=== PATIENT | male | born 1985 | race Two or more races ===

== ENCOUNTER 2022-07-23 21:11 | Emergency (ER) | payer MEDICAID, SELFPAY ==
--- NOTE | 2022-07-23 | ECG_ITS ---
Test Reason : CHEST PAIN Blood Pressure : / mmHG Vent. Rate : 066 BPM Atrial Rate : 066 BPM P-R Int : 146 ms QRS Dur : 100 ms QT Int : 424 ms P-R-T Axes : 073 065 036 degrees QTc Int : 444 ms Normal sinus rhythm Incomplete right bundle branch block Borderline ECG When compared with ECG of 13-NOV-2019 13:07, No significant change was found Referred By: Generic ED Physician Electronically Signed By:BOZENA BLUM
[2022-07-23 21:29] VITALS: BP 149/93; PULSE 64; RESP 18; TEMP 36.4; O2SAT 98; BMI 31.6
== END 2022-07-24 01:03 | disposition left against medical advice (07) ==
PROVIDERS: Emergency Provider Emergency Medicine
DX: R06.02 Shortness of breath (principal); R07.89 Other chest pain
CPT/HCPCS: 93005; 99281; 99283

== ENCOUNTER 2023-02-12 15:20 | Outpatient (REF) | payer MEDICAID, SELFPAY ==
--- NOTE | ~2023-02-12 | US_ITS ---
EXAMINATION: US PELVIS, LIMITED/FOLLOW UP CLINICAL INFORMATION: Evaluate for left-sided inguinal hernia. COMPARISON: None available. TECHNIQUE: Targeted real-time sonographic evaluation of the left inguinal region for evaluation of hernia. US/US pelvic limited FINDINGS/IMPRESSION: There is a fat-containing left-sided inguinal hernia with a neck measuring 0.6 cm. There are a few slightly prominent but benign-appearing left inguinal lymph nodes, likely reactive, for which no imaging follow-up is recommended.
== END 2023-02-12 15:21 | disposition home or self-care (01) ==
LOC: HO.US 15:20
PROVIDERS: PCP Family Medicine; Visit Provider Registered Nurse
DX: K40.91 Unilateral inguinal hernia, without obstruction or gangrene, recurrent (principal)
CPT/HCPCS: 76857

== ENCOUNTER → 2023-02-25 09:09 | Outpatient (BNVA) | payer MEDICAID, SELFPAY | PROVIDERS: PCP Family Medicine; Referring Provider Family Medicine; Visit Provider Surgery | DX: K40.90 Unilateral inguinal hernia, without obstruction or gangrene, not specified as recurrent (principal) | CPT/HCPCS: 99202 ==

== ENCOUNTER 2023-04-02 09:04 | Day surgery (SDC) | payer MEDICAID, SELFPAY ==
[2023-03-31 10:52] VITALS: BMI 30.9
--- NOTE | 2023-04-01 10:01 | MHC.SHP ---
Pre-Procedural Eval Section A Date of Service: 04/01/23 The patient is an INPATIENT: No Changes since office visit: No Cold of Flu in the past 2 weeks, No New Medical Problems, No Changes in Medication and No Patient answered all questions The History & Physical has been completed within 30 days and I have reviewed it.: Yes Section B Chief Complaint: Unilateral inguinal hernia, without obstruction Allergies: Allergies Allergy/AdvReac Type Severity Reaction Status Date / Time No Known Allergies Allergy Unverified 02/25/23 09:15 [No Known Allergies*] Plan I have reviewed the history and physical and performed a pertinent physical examination on my patient. No changes have occurred unless specified. Time Spent With Patient Time: Total time managing care of this patient today ____ minutes.
--- NOTE | 2023-04-01 10:05 | P.CONAN_ITS ---
Documented by User: Elsi Santiago NP 04/01/23 10:06 HPI - Anesthesia Eval Consult details Narrative: 38yo M for Left Hernia Repair Inguinal with mesh PMFSH Active Problems Active Problems: All Active Problems (Updated 02/25/23 @ 09:30 by David Dennis MD) Inguinal hernia (Acute) Past Medical History Medical History (Updated 02/25/23 @ 09:18 by OSEAS Daniel) History of calculus of gallbladder (~2014) Seasonal allergies Sinusitis Family History Family History (Updated 02/25/23 @ 09:19 by OSEAS Daniel) Mother No problems noted. Social History Social History (Updated 02/25/23 @ 09:20 by OSEAS Daniel) Alcohol intake: current Alcohol intake frequency: holidays/special occasions only Patient Tobacco Use Status: Current everyday Tobacco user Cigarettes Per Day: 10 Advance Directives: No Advance Directives Information Provided: Yes Meds Allergies Allergy/AdvReac Type Severity Reaction Status Date / Time No Known Allergies Allergy Unverified 02/25/23 09:15 [No Known Allergies*] Active Medications: Current Medications Cefazolin Sodium/Dextrose (Ancef) 2 gm in 50 mls @ 100 mls/hr IV PREOP ONE Stop: 04/01/23 10:29 Home Medications Medication Instructions Recorded Confirmed Last Taken Type ibuprofen 800 mg tablet 800 mg PO Q6H 02/25/23 Unknown History Exam Exam Date and Time: April 01, 2023 1005 Height,Weight and Vital Signs: Height 6 ft 4 in Weight 115.212 kg Narrative Narrative: EKG 06/2022 Vent. Rate : 066 BPM ? ? Atrial Rate : 066 BPM ?? P-R Int : 146 ms? QRS Dur : 100 ms ? ? QT Int : 424 ms ? ? ? P-R-T Axes : 073 065 036 degrees ?? QTc Int : 444 ms ? Normal sinus rhythm Incomplete right bundle branch block Borderline ECG When compared with ECG of 13-NOV-2019 13:07, No significant change was found Assessment and Plan Assessment Anesthesia Assessment: Chart Reviewed Documented by User: Ajit Fink MD 04/02/23 10:29 [facility] Past Medical History Medical History (Updated 02/25/23 @ 09:18 by OSEAS Daniel) History of calculus of gallbladder (~2014) Seasonal allergies Sinusitis Narrative: BERNARD. W/U ongoing. Family History Family History (Updated 02/25/23 @ 09:19 by OSEAS Daniel) Mother No problems noted. Family history of problems with anesthesia: No Surgical History History of Problems with Anesthesia: No Social History Social History (Updated 02/25/23 @ 09:20 by OSEAS Daniel) Alcohol intake: current Alcohol intake frequency: holidays/special occasions only Patient Tobacco Use Status: Current everyday Tobacco user Cigarettes Per Day: 10 Advance Directives: No Advance Directives Information Provided: Yes Meds Allergies Allergy/AdvReac Type Severity Reaction Status Date / Time No Known Allergies Allergy Unverified 02/25/23 09:15 [No Known Allergies*] Home Medications Medication Instructions Recorded Confirmed Last Taken Type ibuprofen 800 mg tablet 800 mg PO Q6H 02/25/23 Unknown History Exam Airway Mallampati Class: II TM Dist: >3cm Neck ROM: Full Heart: ok Lungs: ok Assessment and Plan Assessment Anesthesia Assessment: Anesthesia Plan Discussed Final Anesthetic Review Family History of Problems with Anesthesia: No History of Problems with Anesthesia: No NPO: Yes ASA Class: III Final Preanesthetic Review: No Changes in Pt Med Stat, Meds/Allgs Chart Reviewed, Consent Obtained/Reviewed and Anes Risks/Benef Reviewed Patient Risk: Intermediate Procedure Risk: Low Anesthetic Plan Anesthetic Plan: MAC: and Agree w/ Assess. and Plan Disposition: Standard PACU
[2023-04-02 10:32] VITALS: BMI 31.0
[2023-04-02] MEDS: Lactated Ringers 1,000 ML 100 ML IVCONT (10:43)
[2023-04-02 11:48] VITALS: BP 122/76; PULSE 62; RESP 16; TEMP 36.4; O2SAT 97
--- NOTE | 2023-04-02 11:50 | P.OP_ITS ---
Operative Note Operative Note Date of Service: 04/02/23 Narrative: Preoperative diagnosis: [] Symptomatic left inguinal hernia Postop diagnosis: [] Same Procedure [] open repair left inguinal hernia with Bard mesh Surgeon: [] Sonny Child Development Associate Teacher: [] yen Corey Type of Anesthesia: [] MAC converted to LMA Indication for surgery: [] Very large direct left inguinal hernia. No indirect hernia demonstrated. Findings: [] Patient brought to the operating room, placed on the operative table supine position, and after adequate level of MAC converted to LMA anesthesia was induced, along with local infiltration ,the patient's left groin was prepped and draped in usual sterile fashion. Using a small left para- inguinal incision, this carried down through skin, subcutaneous tissue, and Jona's fascia. External oblique fibers were opened their direction with care to isolate and preserve the ilioinguinal nerve throughout the procedure. Spermatic cord was identified and retracted from the field. Exploration of the cord demonstrated no indirect hernia. A very large direct inguinal hernia was reduced. A Bard plug was placed in this defect and sutured in inferiorly to the inguinal ligament and superiorly to the transversalis fascia using interrupted 0 Ethibond suture. A completion the procedure, the mesh was in good position and covered the entire inguinal floor. Wound was irrigated, secured for hemostasis, and closed in the following manner ; external oblique fascia was closed using running 2-0 Vicryl suture. Jona's fascia was reapproximated using up to 3-0 Vicryl sutures. Interrupted inverted subdermal 3-0 Vicryl sutures followed by running subcuticular 4-0 Vicryl suture placed. Steri-Strips and sterile dressings were applied. Wound was infiltrated 0.5% Marcaine and 1% lidocaine at completion the procedure. Sponge, needle, and instrument counts reported correct. Patient tolerated the procedure well and emerged anesthesia stable condition. EBL minimum
[2023-04-02 11:53] VITALS: BP 122/67; PULSE 60; RESP 16; O2SAT 97
[2023-04-02 11:58] VITALS: BP 115/73; PULSE 61; RESP 16; O2SAT 97
[2023-04-02 12:03] VITALS: BP 112/61; PULSE 61; RESP 16; O2SAT 97
[2023-04-02] MEDS: oxyCODONE HCl Immed Release 5 MG TABLET PO (12:17)
[2023-04-02] MEDS: Acetaminophen 325 MG TABLET 650 MG PO (12:17)
[2023-04-02 12:18] VITALS: BP 120/75; PULSE 53; RESP 16; O2SAT 100
[2023-04-02 12:33] VITALS: BP 120/75; PULSE 60; RESP 16; TEMP 36.3; O2SAT 99
== END 2023-04-02 13:15 | disposition home or self-care (01) ==
PROVIDERS: PCP Family Medicine; Visit Provider Surgery
PROC: (CPT 49505; principal; 2023-04-02 10:30)
DX: K40.90 Unilateral inguinal hernia, without obstruction or gangrene, not specified as recurrent (principal); J30.2 Other seasonal allergic rhinitis; J32.9 Chronic sinusitis, unspecified; Z79.1 Long term (current) use of non-steroidal anti-inflammatories (NSAID); F17.210 Nicotine dependence, cigarettes, uncomplicated
CPT/HCPCS: 49505; C1781; J0690; J1885; J2250; J3010

== ENCOUNTER → 2023-04-10 08:09 | Outpatient (BNVA) | payer MEDICAID, SELFPAY | PROVIDERS: PCP Family Medicine; Visit Provider Surgery | DX: K40.90 Unilateral inguinal hernia, without obstruction or gangrene, not specified as recurrent (principal) | CPT/HCPCS: 99212 ==

== ENCOUNTER → 2023-04-24 13:43 | Outpatient (BNVA) | payer MEDICAID, SELFPAY | PROVIDERS: PCP Family Medicine; Visit Provider Surgery ==

== ENCOUNTER 2024-01-22 12:18 | Outpatient (REF) | payer MEDICAID, SELFPAY ==
[2024-01-22 13:59] LABS: Estimated Average Glucose 105 mg/dL; Hemoglobin A1C 143.6838 umol/L; Hemoglobin A1c % 5.3 % (<6.0)
[2024-01-22 15:40] LABS: CT PCR NOT DETECTED (Not Detect.); NG PCR NOT DETECTED (Not Detect.)
[2024-01-22 16:52] LABS: Alanine Aminotransferase 22 U/L (0-40); Alkaline Phosphatase 59 U/L (39-117); Anion Gap 8 (12-20); Aspartate Amino Transferase 20 U/L (5-37); Bilirubin Total 0.7 mg/dL (0.0-1.0); Blood Urea Nitrogen 16 mg/dL (9-16); Calcium 9.2 mg/dL (8.4-10.2); Carbon Dioxide 31 mmol/L (22-29); Chloride 105 mmol/L (96-108); Cholesterol 176 mg/dL (<200); Estimated Glomerular Filt Rate > 60; Glucose Random 87 mg/dL (60-115); HDL Cholesterol 62 mg/dL (>40); LDL Cholesterol Calculated 93 mg/dL (<100); Potassium 4.2 mmol/L (3.3-5.1); Sodium 140 mmol/L (135-145); Total Protein 7.3 g/dL (6.5-8.0); Triglycerides 105 mg/dL (<150)
[2024-01-22 16:59] LABS: TSH reflex Free T4 2.24 uIU/mL (0.32-4.0)
[2024-01-22 18:58] LABS: Reflex LDLD? No
[2024-01-23 04:02] LABS: Syphilis Screen Nonreactive (Nonreactive)
[2024-01-23 04:08] LABS: HBS Num1 30.89 mIU/mL (0-7.99); HBc Num1 0.09 S/CO (0.00-0.79); HBsAGNum1 0.34 S/CO (0.00-0.99); HIV AB/AG Nonreactive (Nonreactive); HIV Num 1 0.04 S/CO (0.00-0.99); Hepatitis B Core Antibody Nonreactive (Nonreactive); Hepatitis B Surface Antigen Negative (Negative); ~Hepatitis B Surface Antibody REACTIVE (Nonreactive); ~Hepatitis C Antibody Nonreactive (Nonreactive)
== END 2024-01-22 12:19 | disposition home or self-care (01) ==
LOC: HO.HHCL 12:18
PROVIDERS: Visit Provider Family Medicine
DX: Z11.3 Encounter for screening for infections with a predominantly sexual mode of transmission (principal); Z11.4 Encounter for screening for human immunodeficiency virus [HIV]; R03.0 Elevated blood-pressure reading, without diagnosis of hypertension
CPT/HCPCS: 0353U; 36415; 80053; 80061; 83036; 84443; 86704; 86706; 86780; 86803; 87340; 87389

== ENCOUNTER 2024-04-16 12:52 | Outpatient (REF) | payer MEDICAID, SELFPAY ==
--- NOTE | ~2024-04-16 | XR_ITS ---
EXAMINATION: XR LUMBOSACRAL SPINE WITH OBLIQUES CLINICAL INFORMATION: Low back pain COMPARISON: 03/10/2019 TECHNIQUE: 5 views of the lumbar spine. FINDINGS: Mild levoscoliosis of the lumbar spine. Surgical clips in the right upper quadrant. There are 5 nonrib-bearing lumbar-type vertebral bodies. Facet arthritis in the lower lumbar spine. Mild multilevel lumbar spondylosis with mild loss of disc space height at L5-S1. Degenerative changes in the bilateral sacroiliac joints. XR/XR lumbar spine 4V min IMPRESSION: Mild multilevel lumbar spondylosis with mild loss of disc space height at L5-S1.
== END 2024-04-16 12:53 | disposition home or self-care (01) ==
LOC: HO.XRAY 12:52
PROVIDERS: PCP Family Medicine; Visit Provider Student in an Organized Health Care Education/Training Program
DX: M54.50 Low back pain, unspecified (principal)
CPT/HCPCS: 72110

== ENCOUNTER 2025-08-15 11:25 | Outpatient (REF) | payer MEDICAID, SELFPAY ==
[2025-08-15 13:16] LABS: MANUAL DIFF FLAG NO
[2025-08-15 13:35] LABS: Hematocrit 46.7 % (42.0-52.0); Hemoglobin 15.2 g/dl (14.0-18.0); Imm Gran Abs Auto 0.05 X10*3/uL (0.00-0.03); Imm Gran Pct Auto 0.6 % (0.0-0.4); Lymphocytes Absolute Auto 3.0 X10*3/uL (1.2-4.9); Mean Corpuscular HGB Conc 32.5 g/dl (31.0-36.0); Mean Corpuscular Hemoglobin 28.4 pg (27.0-33.0); Mean Corpuscular Volume 87.1 fL (80.0-98.0); NRBC Abs Auto 0.000 X10*3/uL (0.0-0.012); NRBC Pct Auto 0.0 /100WBC (0.0-0.2); Platelet Count 257 X10*3/uL (160-400); Red Blood Count 5.36 X10*6/uL (4.60-5.80); White Blood Count 8.7 X10*3/uL (4.8-10.8)
[2025-08-15 14:03] LABS: Alanine Aminotransferase 29 U/L (0-40); Albumin Level 4.2 g/dL (3.5-5.0); Alkaline Phosphatase 70 U/L (39-117); Anion Gap 10 (12-20); Aspartate Amino Transferase 24 U/L (5-37); Blood Urea Nitrogen 18 mg/dL (9-16); Calcium 9.2 mg/dL (8.4-10.2); Carbon Dioxide 28 mmol/L (22-29); Chloride 105 mmol/L (96-108); Cholesterol 192 mg/dL (<200); Estimated Glomerular Filt Rate > 60; HDL Cholesterol 63 mg/dL (>40); Potassium 3.9 mmol/L (3.3-5.1); Sodium 139 mmol/L (135-145); Total Protein 7.3 g/dL (6.5-8.0); Triglycerides 91 mg/dL (<150)
[2025-08-15 14:10] LABS: Reflex LDLD? No
[2025-08-16 08:24] LABS: Syphilis Screen Nonreactive (Nonreactive)
[2025-08-16 13:13] LABS: HBsAGNum1 0.34 S/CO (0.00-0.99); HIV Num 1 0.06 S/CO (0.00-0.99); Hepatitis B Surface Antigen Negative (Negative); ~HepC Num1 0.07 S/CO (0.00-0.79); ~Hepatitis C Antibody Nonreactive (Nonreactive)
[2025-08-19 04:45] LABS: ~Hepatitis A Antibody IgG 0.30 S/CO (0.00-0.99)
== END 2025-08-15 11:26 | disposition home or self-care (01) ==
LOC: HO.HHCL 11:25
PROVIDERS: PCP Family Medicine; Visit Provider Family Medicine
DX: Z01.84 Encounter for antibody response examination (principal); Z11.3 Encounter for screening for infections with a predominantly sexual mode of transmission; Z13.220 Encounter for screening for lipoid disorders; Z11.59 Encounter for screening for other viral diseases; Z13.1 Encounter for screening for diabetes mellitus; Z11.4 Encounter for screening for human immunodeficiency virus [HIV]; R63.5 Abnormal weight gain; R03.0 Elevated blood-pressure reading, without diagnosis of hypertension
CPT/HCPCS: 36415; 80053; 80061; 83036; 84443; 85025; 86708; 86780; 86803; 87340; 87389

== ENCOUNTER 2025-09-27 08:37 | Outpatient (REF) | payer MEDICAID, SELFPAY ==
--- NOTE | ~2025-09-27 | US_ITS ---
EXAMINATION: US LOWER EXTREMITY VENOUS (REFLUX EXAM), BILATERAL CLINICAL INFORMATION: Localized edema. COMPARISON: None. TECHNIQUE: Color flow triplex imaging and compression Doppler was performed to evaluate both the deep and the superficial systems bilaterally. To evaluate the superficial system, the examination was performed in the upright position. Color-flow Doppler ultrasound and compression ultrasound were utilized. In addition, maneuvers were utilized to demonstrate reflux. FINDINGS: 1. DEEP VENOUS ULTRASOUND OF THE RIGHT LOWER EXTREMITY: Common Femoral Vein: Compressible, normal respiratory variation and augmented flow. Femoral Vein: Compressible, normal color flow and augmentation. Popliteal Vein: Compressible, normal augmentation. Deep Reflux: There is no evidence of reflux in the deep system in either the common femoral vein, superficial femoral or the popliteal vein. There is no evidence of a Rosenthal's cyst. 2. SUPERFICIAL ULTRASOUND WITH DOPPLER OF RIGHT LOWER EXTREMITY: GREAT SAPHENOUS VEIN: Saphenofemoral Junction: 0.5 cm; Reflux: 0 ms Proximal Thigh: 0.6 cm; Reflux: 0 ms Mid Thigh: 0.3 cm; Reflux: 0 ms Distal Thigh: 0.4 cm; Reflux: 0 ms At Knee: 0.3 cm; Reflux: 0 ms Proximal Calf: 0.4 cm; Reflux: 0 ms Mid Calf: 0.3 cm; Reflux: 0 ms Distal Calf: 0.3 cm; Reflux: 0 ms DUPLICATED MEDIAL GREAT SAPHENOUS VEIN: Diameter: None imaged Reflux: NA DUPLICATED LATERAL GREAT SAPHENOUS VEIN: Diameter: 0.4 cm. Reflux: NA SMALL SAPHENOUS VEIN: Saphenopopliteal Junction: 0.3 cm; Reflux: 0 ms Proximal: 0.3 cm; Reflux: 0 ms Distal: 0.3 cm; Reflux: 0 ms VEIN OF GIACOMINI: Size: 0.3 cm. Reflux: NA PERFORATORS: Location: Mid calf and mid thigh. Size: 0.2 cm, 0.3 cm and 0.15 cm. Reflux: NA VARICOSITIES: Location: Distal thigh. Size: 0.3 cm. Reflux: NA 3. DEEP VENOUS ULTRASOUND OF THE LEFT LOWER EXTREMITY: Common Femoral Vein: Compressible, normal respiratory variation and augmented flow. Femoral Vein: Compressible, normal color flow and augmentation. Popliteal Vein: Compressible, normal augmentation. Deep Reflux: There is no evidence of reflux in the deep system in either the common femoral vein, superficial femoral or the popliteal vein. There is no evidence of a Rosenthal's cyst. 4. SUPERFICIAL ULTRASOUND WITH DOPPLER OF LEFT LOWER EXTREMITY: GREAT SAPHENOUS VEIN: Saphenofemoral Junction: 1.2 cm; Reflux: 0 ms Proximal Thigh: 0.7 cm; Reflux: 0 ms Mid Thigh: 0.4 cm; Reflux: 0 ms Distal Thigh: 0.5 cm; Reflux: 0 ms At Knee: 0.4 cm; Reflux: 0 ms Proximal Calf: 0.4 cm; Reflux: 0 ms Mid Calf: 0.3 cm; Reflux: 0 ms Distal Calf: 0.3 cm; Reflux: 0 ms DUPLICATED MEDIAL GREAT SAPHENOUS VEIN: Diameter: 0.3 cm. Reflux: NA DUPLICATED LATERAL GREAT SAPHENOUS VEIN: Diameter: None imaged. Reflux: NA SMALL SAPHENOUS VEIN: Saphenopopliteal Junction: 0.3 cm; Reflux: 0 ms Proximal: 0.3 cm; Reflux: 0 ms Distal: 0.4 cm; Reflux: 0 ms VEIN OF GIACOMINI: Size: NA Reflux: NA PERFORATORS: Location: Mid and distal calf. Size: 0.3 and 0.2 cm. Reflux: NA VARICOSITIES: Location: Proximal and distal thigh. Proximal calf. Size: 0.3 cm. Reflux: 644 ms in the distal thigh. US/US venous insuf bilat IMPRESSION: Right: No venous insufficiency. Perforators and varices without reflux. Left: No venous insufficiency. Varices with reflux in the distal thigh. Perforators without reflux. Electronically signed by: Dereck Sales MD 09/27/2025 09:45 AM CATIE
--- OUTSIDE RECORDS SUMMARY | 2025-09-27 08:41 | XMS_ITS | Clinical Summary ---
Author Organization [facility] it Address [address] [place] [address] Care Team Providers Care Manager Orange Name Role Phone Unavailable Primary Care Provider Unavailabl e Social History Tobacco Use Types Packs/Day Years Used Date Smoking Tobacco: Never Assessed Sex and Gender Information Value Date Recorded Sex Assigned at Not on file Legal Sex Male 5:45 AM EST Gender Identity Not on file Sexual Orientation Not on file Plan of Treatment Health Maintenance Due Date Last Done Comments DTaP,Tdap,and Td Vaccines (1 - Tdap) 2003 Hepatitis B Vaccines (1 of 3 - 19+ 3-dose series) 2003 HPV Vaccines (1 - 3-dose SCD M series) 2011 Depression Screening 10/27/2024 COVID-19 Vaccine (1 - 2024-2 6 season) 2025 Influenza Vaccine (#1) 2025 RSV Immunization Adult Patie nts (1 - 1-dose 75+ series) 2059 HIB Vaccines Aged Out No longer eligi ble based on patient's age to complete this topic Hepatitis A Vaccines Aged Out No long er eligible based on patient's age to complete this topic IPV Vaccines Aged Out No longer eligi ble based on patient's age to complete this topic MMR Vaccines Aged Out No longer eligi ble based on patient's age to complete this topic Meningococcal ACWY Vaccine Aged Out N o longer eligible based on patient's age to complete this topic Meningococcal B Vaccine Aged Out No l onger eligible based on patient's age to complete this topic Pneumococcal Vaccine: Pediat rics (0 to 5 Years) and At-Risk Patients (6 to 49 Years) Aged Out No longer eligible b ased on patient's age to complete this topic RSV Immunization Patients Un mandeep 20 months Aged Out No longer eligible b ased on patient's age to complete this topic Varicella Vaccines Aged Out No longer eligible based on patient's age to complete this topic
--- OUTSIDE RECORDS SUMMARY | 2025-09-27 08:41 | XMS_ITS | Encounter Summary ---
Author Organization [employer] Address [address] [place] [address] Care Team Providers Care Senior Caregiver Name Role Phone Delphine Grayson MD Primary Care Provider [phone] Encounter Details Date Type Department Care Team (Late st Contact Info) Description 09/26/2025 Telephone [facility] ADULT DENTAL [address], [place] [phone] Peterson Alfredo DDS [address], [place] [phone] Social History Tobacco Use Types Packs/Day Years Used Date Smoking Tobacco: Some Days Cigarettes Smokeless Tobacco: Never Alcohol Use Standard Drinks/Week Comments Not Currently 0 (1 standard drink = 0.6 oz pur e alcohol) Depression Answer Date Recorded Patient Health Questionnaire-9 Score 6 08/15/2025 Patient Health Questionnaire-9 Score 6 08/15/2025 Last PHQ-9: Questionnaire Data Not on file 1 Housing Stability Answer Date Recorded What is your housing situation today? I do not have housing (Staying with others, in a hotel, in a residential, living outside on the street, on a beach, in a car, or in a park 08/01/[address] you li ve. Do you have problems with any of the following? None of the above 08/01/2025 Food Insecurity Answer Date Recorded Within the past 12 months, y ou worried that your food would run out before you got money to buy more: Often true 08/01/2025 Within the past 12 months,th e food you bought just didn't last and you didn't have enough money to get more: Often true 03/2025 Transportation Answer Date Recorded In the past 12 months, has l ack of transportation kept you from medical appts, meetings, work or from getting things needed for daily living? No 08/01/2025 Utilities Answer Date Recorded In the past 12 months, has t he electric, gas, oil or water company threatened to shut off services in your home? No 08/01/2025 Depression Answer Date Recorded Patient Health Questionnaire-2 Score 1 08/15/2025 Internet Access Answer Date Recorded Internet Access Q1 Yes 08/01/2025 Internet Access Q2 Not on file 08/01/2025 Sex and Gender Information Value Date Recorded Sex Assigned at Male 08/26/2022 10:35 AM EDT Legal Sex Male 10:35 AM EDT Gender Identity Male 08/13/2025 10:55 AM EDT Sexual Orientation Choose not to disclose 2021 10:35 AM EDT documented as of this encounter Miscellaneous Notes * Telephone Encounter - Silvio Hutchins - 09/26/2025 8:29 AM EST Called patient to reschedule an appointment due to provider been out but there was no answer so I left a voicemail with a new date for the appointment and explaining why we needed to reschedule. documented in this encounter Plan of Treatment Upcoming Encounters Date Type Department Care Team (Late st Contact Info) Description 09/30/2025 10:30 AM EST Clinical Support [facility] MED[facility]INE [address] [place] [address] 10/05/2025 2:30 PM EST Office Visit [facility] [address] [place] [address] documented as of this encounter Visit Diagnoses Not on filedocumented in this encounter Additional Health Concerns Assessment Noted Time PHQ-9 Depression Total Score: 6 08/15/20 25 11:23 AM EDT documented as of this encounter Care Teams Senior Caregiver Relationship Specialty Start Date End Date Delphine Grayson MD [address] [place] [address] PCP - General Family Medicine 07/18/22 documented as of this encounter
--- OUTSIDE RECORDS SUMMARY | 2025-09-27 08:41 | XMS_ITS | Encounter Summary ---
Author Organization [employer] Address [address] [place] [address] Care Team Providers Care Stationary Plant Operators Name Role Phone Delphine Grayson MD Primary Care Provider [phone] Encounter Details Date Type Department Care Team (Latest Contact Info) Description 07/27/2019 Abstract [facility] CONVERSIONS Dental, Provider, DDS Social History Tobacco Use Types Packs/Day Years Used Date Smoking Tobacco: Never Assessed Sex and Gender Information Value Date Recorded Sex Assigned at Male 08/26/2022 10:35 AM EDT Legal Sex Male 10:35 AM EDT Gender Identity Male 08/13/2025 10:55 AM EDT Sexual Orientation Choose not to disclose 2021 10:35 AM EDT documented as of this encounter Plan of Treatment Upcoming Encounters Date Type Department Care Team (Late st Contact Info) Description 09/30/2025 10:30 AM EST Clinical Support [facility] MEDICINE [address] [place] [address] 10/05/2025 2:30 PM EST Office Visit [facility] ADULT DENTAL [address] [place] [address] documented as of this encounter Visit Diagnoses Not on filedocumented in this encounter Care Teams Stationary Plant Operators Relationship Specialty Start Date End Date Delphine Grayson MD [address] [place] [address] PCP - General Family Medicine 07/18/22 documented as of this encounter
--- OUTSIDE RECORDS SUMMARY | 2025-09-27 08:41 | XMS_ITS | Encounter Summary ---
Author Organization [employer] Address [address] [place] [address] Care Team Providers Care Job Change Crew Member Name Role Phone Delphine Grayson MD Primary Care Provider [phone] Reason for Visit * Reason Onset Date Comments Appointment Request 08/08/2025 Encounter Details Date Type Department Care Team ([facility] st Contact Info) Description 08/08/2025 Telephone [facility] MED[facility] [address] [place], [place] [phone] Delphine Grayson MD [address] [place] [address] Appointment Request Social History Tobacco Use Types Packs/Day Years Used Date Smoking Tobacco: Some Days Cigarettes Smokeless Tobacco: Never Alcohol Use Standard Drinks/Week Comments Not Currently 0 (1 standard drink = 0.6 oz pur e alcohol) Depression Answer Date Recorded Patient Health Questionnaire-9 Score 13 06/02/2024 Patient Health Questionnaire-9 Score 13 06/02/2024 Last PHQ-9: Questionnaire Data Not on file 0 06/02/2024 Housing Stability Answer Date Recorded What is your housing situation today? I do not have housing (Staying with others, in a hotel, in a assisted, living outside on the street, on a [...] Answer Date Recorded Patient Health Questionnaire-2 Score 2 06/02/2024 Internet Access Answer Date Recorded Internet Access [...] encounter Miscellaneous Notes * Telephone Encounter - Irving Kaur - 08/08/2025 3:47 PM EDT Tc from pt requesting to abdulaziz hanna for 08/08. Remotely Piloted Vehicle Controller advised pt that there is nothing available and amessage will be sent. Contact pt at [phone] documented in this encounter Plan of Treatment Upcoming Encounters Date Type Department Care Team (Late st Contact Info) Description 09/30/2025 10:30 AM EST Clinical Support [facility] MED[facility] [address] [place] [address] 10/05/2025 2:30 PM EST Office Visit [facility] ADULT D[facility] [address] [place] [address] documented as of this encounter Visit Diagnoses Not on filedocumented in this encounter Additional Health Concerns Assessment Noted Time PHQ-9 Depression Total Score: 13 024 4:05 PM EDT documented as of this encounter Care Teams Job Change Crew Member Relationship Specialty Start Date End Date Delphine Grayson MD [address] [place] [address] PCP - General Family Medicine 07/18/22 documented as of this encounter
--- OUTSIDE RECORDS SUMMARY | 2025-09-27 08:41 | XMS_ITS | Clinical Summary ---
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 LDL Cholesterol Calculated 111(H) <100 mg/dL [facility] Comment:Desirable LDL: less than 100 mg/dLNear Optimal/Above Optimal LDL: 110- 129 mg/dLBorderline High LDL: 130-159 mg/dLHigh LDL: 160-189 mg/dLVery High LDL: greater than or equal to 190 mg/dL HDL Cholesterol 63 >40 mg/dL [facility] Comment:Desirable HDL: great er than 40 mg/dL Note: This HDL assay may give artificially low results in patients with liver disease. Blood 08/15/2025 11:3 2 AM EDT 08/15/2025 1:14 PM EDT us Delphine Grayson MD LAB BLOOD ORDERABLES Final Resul t [facility] [address] [place] [address] [phone] * (ABNORMAL) CBC auto differential (08/15/2025 11:32 AM EDT) White Blood Count 8.7 4.8 - 10.8 X10*3/uL [facility] Red Blood Count 5.36 4.60 - 5.80 X10*6/uL [facility] Hemoglobin 15.2 14.0 - 18.0 g/dl [facility] Hematocrit 46.7 42.0 - 52.0 % [facility] Mean Corpuscular Volume 87.1 80.0 - 98.0 fL [facility] Mean Corpuscular Hemoglobin 28.4 27.0 - 33.0 pg [facility] Mean Corpuscular HGB Conc 32.5 31.0 - 36.0 g/dl [facility] Red Cell Distribution Width 13.1 11.0 - 16.0 % [facility] Platelet Count 257 160 - 400 X10*3/uL [facility] Mean Platelet Volume 9.9 9.4 - 12.4 fL [facility] Neutrophils Percent Auto 55.9 45 - 73 % [facility] Imm Gran Pct Auto 0.6(H) 0.0 - 0.4 % [facility] Lymphocytes Percent Auto 34.0 20 - 40 % [facility] Monocytes Percent Auto 6.1 2 - 11 % [facility] Eosinophils Percent Auto 2.7 0 - 4 % [facility] Basophils Percent Auto 0.7 0 - 2 % [facility] NRBC Pct Auto 0.0 0.0 - 0.2 /100WBC [facility] Neutrophils Absolute Auto 4.9 2.0 - 8.3 x10*3/uL [facility] Imm Gran Abs Auto 0.05(H) 0.00 - 0.03 X10*3/uL [facility] Lymphocytes Absolute Auto 3.0 1.2 - 4.9 X10*3/uL [facility] Monocytes Absolute Auto 0.5 0.1 - 1.2 X10*3/uL [facility] Eosinophils Absolute Auto 0.2 0.0 - 0.4 X10*3/uL [facility] Basophils Absolute Auto 0.1 0.0 - 0.2 X10*3/uL [facility] NRBC Abs Auto 0.000 0.0 - 0.012 X10*3/uL [facility] Blood Venous blood specimen / Unknown 08/15/2025 11:32 AM EDT 08/15/2025 1:14 PM EDT us Delphine Grayson MD LAB BLOOD ORDERABLES Final Resul t [facility] [address] [place] [address] [phone] * Hepatitis C Antibody with Reflex to HCV, RNA, Quantitative, Real-Time PCR (08/15/2025 11:32 AM EDT) Hepatitis C Antibody Nonreactive Nonreactive [facility] Comment:Antibodies to HCV no t detected; does not exclude early acuteHCV infection. Venous blood specimen / Unknown 08/15/2025 11:32 AM EDT 08/15/2025 1:14 PM EDT us Delphine Grayson MD LAB BLOOD ORDERABLES Final Resul t Performing Organization Address [facility] Co de Phone Number [facility] [address] [place] [address] [phone] * Hepatitis A Antibody, Total (08/15/2025 11:32 AM EDT) Hepatitis A Antibody IgG Nonreactive Nonreactive [facility] Venous blood specimen / Unknown 08/15/2025 11:32 AM EDT 08/15/2025 1:14 PM EDT us Delphine Grayson MD LAB BLOOD ORDERABLES Final Resul t Performing Organization Address [facility] Co de Phone Number [facility] [address] [place] [address] [phone] * Hepatitis B surface antigen, EIA (08/15/2025 11:32 AM EDT) Hepatitis B Surface Ag Negative Negative [facility] Blood Venous blood specimen / Unknown 08/15/2025 11:32 AM EDT 08/15/2025 1:14 PM EDT us Delphine Grayson MD LAB BLOOD ORDERABLES Final Resul t Performing Organization Address [facility] Co de Phone Number [facility] [address] [place] [address] [phone] * HIV-1/2 Antigen and Antibodies, Fourth Generation, with Reflexes (08/15/2025 11:32 AM EDT) HIV AB/AG Nonreactive Nonreactive [facility] Comment:HIV-1 p24 Ag and/or HIV-1/HIV-2 Ab not detected.A test result that is nonreactive does not exclude thepossibility of exposure to or infection with HIV-1 and/orHIV-2. Nonreactive results in this assay for individualswith prior exposure to HIV-1 and/or HIV-2 may be due toantigen and antibody levels that are below the limit ofdetection of this assay.The [employer] HIV Ag/Ab Combo assay result andsupplemental assay results should be interpreted inconjunction with the patient's clinical presentation,history and other laboratory results. If the results areinconsistent with clinical evidence, additional testing issuggested to confirm the result. Venous blood specimen / Unknown 08/15/2025 11:32 AM EDT 08/15/2025 1:14 PM EDT us Delphine Grayson MD LAB BLOOD ORDERABLES Final Resul t [facility] [address] [place] [phone] * Hemoglobin A1c (08/15/2025 11:32 AM EDT) Hemoglobin A1c 5.8 <6.0 % [facility] Comment:Hemoglobin A1C Refer ence Range Adults: 4.8 - 6.0 % Non diabetic: < 6.0 % Goal: < 7.0 %Additional Action Suggested: > 8.0 %Note: Hemoglobin A1c results are invalid for patients with abnormal amounts of HbF. Blood transfusions may impact the HbA1c concentration in the patient sample. Estimated Average Glucose 120 mg/dL [facility] Comment:eAG = Estimated ave rage glucose which is %A1C expressed asaverage glucose, using the formula of the [id number] Glucose study (ADAG), Diabetes Care, Vol.31,#8,May. 2007 Blood Venous blood specimen / Unknown 08/15/2025 11:32 AM EDT 08/15/2025 1:14 PM EDT us Delphine Grayson MD LAB BLOOD ORDERABLES Final Resul t [facility] [address] [place] [phone] * (ABNORMAL) Comprehensive Metabolic Panel (08/15/2025 11:32 AM EDT) Sodium 139 135 - 145 mmol/L [facility] Potassium 3.9 3.3 - 5.1 mmol/L [facility] Chloride 105 96 - 108 mmol/L [facility] Carbon Dioxide 28 22 - 29 mmol/L [facility] Anion Gap 10(L) 12 - 20 [facility] Urea Nitrogen (BUN) 18(H) 9 - 16 mg/dL [facility] Creatinine, Serum 0.93 0.5 - 1.4 mg/dL [facility] Estimated Glomerular Filt Rate >60 [facility] Comment:Chronic Kidney Disea se: Estimated GFR < 60 mL/min/[id number] Kidney Disease: Estimated GFR < 15 mL/min/1.73m2 Glucose 93 60 - 115 mg/dL [facility] Calcium 9.2 8.4 - 10.2 mg/dL [facility] Bilirubin, Total 0.4 0.0 - 1.0 mg/dL [facility] Aspartate Amino Transferase 24 5 - 37 U/L [facility] Alanine Aminotransferase 29 0 - 40 U/L [facility] Total Protein 7.3 6.5 - 8.0 g/dL [facility] Albumin Level 4.2 3.5 - 5.0 g/dL [facility] Alkaline Phosphatase 70 39 - 117 U/L [facility] Blood Venous blood specimen / Unknown 08/15/2025 11:32 AM EDT 08/15/2025 1:14 PM EDT us Delphine Grayson MD LAB BLOOD ORDERABLES Final Resul t [facility] [address] [place], [place] [phone] from Last 3 Months Insurance [facility] C[id number] Care Teams Combat Engineer Relationship Specialty Start Date End Date Delphine Grayson MD [address] [place] [address] [phone] PCP - General Family Medicine 07/18/22
== END 2025-09-27 08:38 | disposition home or self-care (01) ==
LOC: HO.US 08:37
PROVIDERS: PCP Family Medicine; Visit Provider Family Medicine
DX: I87.2 Venous insufficiency (chronic) (peripheral) (principal); R60.0 Localized edema
CPT/HCPCS: 93970

== ENCOUNTER → 2025-09-27 08:52 | Outpatient (BNV) | payer MEDICAID, SELFPAY | PROVIDERS: PCP Family Medicine; Visit Provider Radiology Diagnostic Radiology | DX: I83.893 Varicose veins of bilateral lower extremities with other complications (principal) | CPT/HCPCS: 93970 ==